=== PATIENT | female | born 1970 | race Caucasian/White ===

== ENCOUNTER 2022-03-03 14:57 | Outpatient (CLI) | payer BC, SELFPAY ==
--- NOTE | ~2022-03-03 | XR_ITS ---
XR lumbar spine 2-3V DATE: 03/03/2022 15:19 INDICATION: Mid to lower back pain. No recent injury. TECHNIQUE: AP, lateral, coned lateral lumbosacral views COMPARISON: None FINDINGS: Minimal levoscoliosis of the lumbar spine. Normal alignment of the lumbar spine. No fractur e or bone destruction or spondylolisthesis. The lumbar pedicles are intact. Lumbar and lumbosacral in terspaces are well preserved. There is mild degenerative spurring at T12-L1. The sacroiliac joints are intact. IMPRESSION: Minimal levoscoliosis Mild degenerative spurring at T12-L1 Reviewed, dictated and finalized at location A.
[2022-03-03 20:18] LABS: Basophils Percent Auto 0.7 % (0.2-1.2); Eosinophils Absolute Auto 0.1 K/mm3 (0-0.3); Eosinophils Percent Auto 1.7 % (0-4.4); Hemoglobin 13.9 g/dL (12.0-15.0); Immature Granulocyte Absolute 0.01 K/mm3 (0.00-0.031); Immature Granulocyte Percent A 0.2 % (0-0.5); Lymphocytes Absolute Auto 1.64 K/mm3 (0.9-3.2); Lymphocytes Percent Auto 30.7 % (18.3-44.2); Mean Corpuscular HGB Conc 32.3 g/dl (32-36); Mean Corpuscular Hemoglobin 31.1 pg (26-34); Mean Corpuscular Volume 96.2 fl (80-100); Mean Platelet Volume 10.7 fl (7.4-10.4); Monocytes Absolute Auto 0.3 K/mm3 (0.1-0.6); Monocytes Percent Auto 5.8 % (2.6-8.5); Neutrophils Absolute Auto 3.3 K/mm3 (1.3-6.7); Neutrophils Percent Auto 60.9 % (45.5-73.1); Platelet Count Result 251 k/mm3 (150-375); Red Blood Count 4.47 M/mm3 (4.2-5.4); Red Cell Distribution Width 12.3 % (11.5-14.5); White Blood Count 5.4 K/mm3 (4.5-10.0)
[2022-03-03 20:23] LABS: Alanine Aminotransferase 10 U/L (6-35); Albumin Level 4.6 g/dL (3.5-5.1); Alkaline Phosphatase 93 U/L (38-126); Anion Gap 6 mmol/L (8-16); Aspartate Amino Transferase 19 U/L (14-36); Bilirubin,Total 0.3 mg/dL (0.2-1.3); Blood Urea Nitrogen 13 mg/dL (7-17); Calcium 9.5 mg/dL (8.4-10.2); Carbon Dioxide 30 mmol/L (22-30); Chloride 99 mmol/L (98-107); Cholesterol 235 mg/dL (0-200); Estimated Glomerular Filt Rate > 60; Glucose 103 mg/dL (65-110); HDL Direct 58 mg/dL; Potassium 4.2 mmol/L (3.4-5.0); Sodium 135 mmol/L (137-145); Triglycerides 96 mg/dL (<150)
[2022-03-03 20:32] LABS: Hemoglobin A1C 5.3 % (<5.7)
[2022-03-03 20:35] LABS: LDL Cholesterol Direct 156 mg/dL
[2022-03-04 00:42] LABS: Folic Acid 14.7 ng/mL (2.76->20)
[2022-03-07 20:54] LABS: Varicella IgG Antibody <135.00 Index (>=165.00)
== END 2022-03-03 14:58 | disposition home or self-care (01) ==
PROVIDERS: PCP Family Medicine; Visit Provider Family Medicine
DX: Z00.00 Encounter for general adult medical examination without abnormal findings (principal); R20.0 Anesthesia of skin; Z78.9 Other specified health status
CPT/HCPCS: 36415; 72100; 80053; 80061; 82607; 82746; 83036; 85025; 86787

== ENCOUNTER 2024-01-09 16:19 | Emergency (ER) | payer BC, SELFPAY ==
[2024-01-09 16:27] VITALS: BP 126/75; PULSE 105; RESP 16; TEMP 36.9; O2SAT 100
--- NOTE | 2024-01-09 17:00 | ED.GENADULT ---
HPI - General Adult General Chief complaint: Upper Respiratory Infection Stated complaint: Cough/Shortness of Breath/Headache/Sore Throat Time Seen by Provider: 01/09/24 17:03 Source: patient, RN notes reviewed and old records reviewed Mode of arrival: ambulatory Limitations: no limitations History of Present Illness HPI narrative: 53-year-old female to Express Care with complaint productive cough with increased sputum for 1.5 weeks as well as nasal congestion and bilateral ear pain. Patient has attempted several [id number] medications without relief. Patient endorses history of asthma and COPD. Patient also endorsing 10 of 10 headache upon arrival. Patient denies nausea, vomiting, visual changes, fever. Related Data Allergies Allergy/AdvReac Type Severity Reaction Status Date / Time tramadol Allergy Intermediate redness Verified 12/31/22 07:43 and burning Review of Systems Review of Systems: All systems reviewed & are unremarkable except as noted in HPI and below Constitutional: Constitutional: Reports as per HPI and Reports headache(s) Eyes: Eyes: Reports no additional eye complaints ENT: Reports as per HPI, Reports otalgia ( Bilateral), Reports headache(s), Reports nasal congestion and Denies throat swelling Cardiovascular: Cardiovascular: Reports no additional cardiovascular complaints, Denies chest pain and Denies dyspnea Respiratory: Respiratory: Reports no additional respiratory complaints, Reports change in phlegm color, Reports cough ( productive; green sputum per patient) and Denies dyspnea Musculoskeletal: Musculoskeletal: Reports no additional musculoskeletal complaints Neurologic: Reports system reviewed and no additional complaints, except as documented Psychiatric: Psychiatric: Reports no additional psychiatric complaints PMFSH Past Medical History Medical History Allergies Anxiety Arthritis Asthma COPD (chronic obstructive pulmonary disease) H/O migraine Osteoarthritis Ulcer Surgical History Surgical History H/O tubal ligation Family History Family History Father Cancer Mother Hypertension Diabetes mellitus Depression Anxiety Alcohol abuse Dementia Other Asthma Anxiety Depression Mother Family history of arthritis Family history of diabetes mellitus in first degree relative Family history of dementia Social History Social History Smoking packs per day: 0.5 Smoking cigarettes per day: 10.0 Smoking status: Current every day smoker Tobacco type: cigarettes Alcohol intake: former Substance use: never Living arrangements: with family Gender identity (if verbalized by the patient): Female Comments At the time of my signature, I reviewed and agree with the nursing past medical, surgical, social, and family history. There is no relevant family history pertinent to the patient complaint. Exam Const: General: cooperative, no acute distress, alert, ill appearing, tired appearing, uncomfortable and well nourished Nutritional Appearance: well nourished Orientation/consciousness: patient oriented x3 Limitations: no limitations HENMT: Head: normal to inspection Ears: external ears normal and TM abnormal with fluid behind the TM Face/Nose/Sinus: Normal external nose present, Normal nares present, normal facial exam, No erythema and No edema Face and sinus: normal facial exam, no erythema and no edema Mouth: Yes Normal oral and palatal mucosa present Throat: uvula midline, posterior oropharynx abnormal erythema and postnasal drainage Eyes: General: appearance normal, both eyes and all related structures Neck: Neck: normal visual inspection, full ROM and no meningeal signs Lymphatic: no lymphadenopathy noted
== END 2024-01-09 17:24 | disposition home or self-care (01) ==
PROVIDERS: Emergency Provider Nurse Practitioner Family
DX: J01.10 Acute frontal sinusitis, unspecified (principal); F17.210 Nicotine dependence, cigarettes, uncomplicated; M19.90 Unspecified osteoarthritis, unspecified site; J44.9 Chronic obstructive pulmonary disease, unspecified
CPT/HCPCS: 99213; G0463

== ENCOUNTER 2024-02-17 15:25 | Emergency (ER) | payer BC, SELFPAY ==
[2024-02-17 15:30] VITALS: BP 105/82; PULSE 96; RESP 18; TEMP 36.8; O2SAT 98
--- NOTE | 2024-02-17 15:42 | ED.URI ---
HPI - URI/Sore Throat General Chief Complaint: Upper Respiratory Infection Stated Complaint: Head congestion/headache Time Seen by Provider: 02/17/24 15:49 Source: patient and RN notes reviewed Mode of arrival: ambulatory Limitations: no limitations History of Present Illness HPI Narrative: 53-year-old female presents with concern for 3 day history of cough, chest congestion, sinus congestion, headache, tightness in her chest, wheezing and shortness of breath. She has history of asthma. She has been taking [id number] medications without relief MD elicited complaint: cough and sore throat Related Data Allergies Allergy/AdvReac Type Severity Reaction Status Date / Time tramadol Allergy Intermediate redness Verified 12/31/22 07:43 and burning Review of Systems Review of Systems: CONSTITUTIONAL: Reports malaise. Denies chills, sweats, or fever. EYES: Denies visual changes, redness, or discharge. ENT: Reports rhinorrhea, congestion, sinus pain, and sore throat. CARDIOVASCULAR: Denies chest pain, palpitations, or edema. RESPIRATORY: Reports cough, wheezing, dyspnea. GASTROINTESTINAL: Denies abdominal pain, nausea, vomiting, diarrhea SKIN: Denies rash or itching. MUSCULOSKELETAL: Report myalgia. NEUROLOGIC: Reports headache. All systems reviewed & are unremarkable except as noted in HPI and below PMFSH Past Medical History Medical History Allergies Anxiety Arthritis Asthma COPD (chronic obstructive pulmonary disease) H/O migraine Osteoarthritis Ulcer Surgical History Surgical History H/O tubal ligation Family History Family History Father Cancer Mother Hypertension Diabetes mellitus Depression Anxiety Alcohol abuse Dementia Other Asthma Anxiety Depression Mother Family history of arthritis Family history of diabetes mellitus in first degree relative Family history of dementia Social History Social History Smoking packs per day: 0.5 Smoking cigarettes per day: 10.0 Smoking status: Current every day smoker Tobacco type: cigarettes Alcohol intake: former Substance use: never Living arrangements: with family Gender identity (if verbalized by the patient): Female Comments At time of signature, agree with nursing past medical, surgical, social and family history. There is no relevant family history pertinent to the presenting complaint Exam Narrative: GENERAL: Well-appearing, well-nourished, and in no acute distress. HEAD: Normocephalic EYES: PERRLA, conjunctivae clear ENT: Nares clear, turbinates edematous and erythematous, clear discharge. Mucous membranes moist. TM pearly salguero with dull light reflex bilaterally; no tragal tenderness. Oropharynx not erythematous without lesions. Tonsils not enlarged and without exudate, no drooling, no hoarseness, no trismus, uvula midline. NECK: Supple. No lymphadenopathy CHEST: Scattered wheeze and rhonchi, breath sounds equal. No wheezing, rhonchi, rales, or stridor. No respiratory distress, speaks in full sentences. HEART: Regular rate and rhythm. No murmur heard. SKIN: Warm, dry, no rash. NEURO: Alert and oriented x3. PSYCH: Normal mood and affect Course Course Emergency Course: Patient is aware of diagnosis, understands and agrees to treatment plan. Anticipatory guidance given. Patient agrees to follow-up as directed and is aware of reasons to seek care at the emergency department. Portions of this record may have been created with voice recognition software Level of Care: Express Care Visit Vital Signs Vital signs: Vital Signs Temperature 98.2 F 02/17/24 15:30 Pulse Rate 96 02/17/24 15:30 Respiratory Rate 18 02/17/24 15:30 Blood Pressure 105/82
== END 2024-02-17 16:05 | disposition home or self-care (01) ==
PROVIDERS: Emergency Provider Nurse Practitioner
DX: J22 Unspecified acute lower respiratory infection (principal); F17.210 Nicotine dependence, cigarettes, uncomplicated; M19.90 Unspecified osteoarthritis, unspecified site; J44.9 Chronic obstructive pulmonary disease, unspecified
CPT/HCPCS: 99213; G0463

== ENCOUNTER 2024-11-22 15:55 | Emergency (ER) | payer BC, SELFPAY ==
[2024-11-22 16:03] VITALS: BP 106/91; PULSE 115; RESP 18; TEMP 37.3; O2SAT 97
--- NOTE | 2024-11-22 17:19 | ED.GENADULT ---
HPI - General Adult General Chief complaint: Upper Respiratory Infection Stated complaint: Runny Nose/Congestion/Cough/Sore Throat Source: patient Mode of arrival: ambulatory Limitations: no limitations History of Present Illness HPI narrative: Patient presents for evaluation of sick symptoms for last 3 weeks. She initially sinus congestion thick nasal drainage. She now has hot flashes, a burning sensation in her throat, chills, cough, and SOB. No recent sick contacts to her knowledge. She smokes 1/2 ppd. She has tried multiple medications including DayQuil, NyQuil, Mucinex, and other medications. She has been using her inhalers and administering neb treatments at home. Related Data Home Medications ?Medication ?Instructions ?Recorded ?Confirmed ?Last Taken ?Type atorvastatin 40 mg tablet mg 11/22/24 Unknown History Allergies Allergy/AdvReac Type Severity Reaction Status Date / Time tramadol Allergy Intermediate redness Verified 12/31/22 07:43 and burning Review of Systems Review of Systems: CONSTITUTIONAL: Reports hot flashes and chills. EYES: Denies visual changes, redness, or discharge. ENT: Reports nasal congestion and burning sensation in her throat. CARDIOVASCULAR: Denies chest pain, palpitations, or edema. RESPIRATORY:Reports cough and SOB GASTROINTESTINAL: Denies abdominal pain, nausea, vomiting, or diarrhea. GENITOURINARY: Denies dysuria or hematuria. SKIN: Denies rash or itching. MUSCULOSKELETAL: Denies back pain, joint pain, or myalgia. NEUROLOGIC: Denies headache, numbness, dizziness, or weakness. PSYCHIATRIC: Denies anxiety or depression. [facility] Past Medical History Medical History Allergies Anxiety Arthritis Asthma COPD (chronic obstructive pulmonary disease) H/O migraine Osteoarthritis Ulcer Surgical History Surgical History H/O tubal ligation Family History Family History Father Cancer Mother Hypertension Diabetes mellitus Depression Anxiety Alcohol abuse Dementia Other Asthma Anxiety Depression Mother Family history of arthritis Family history of diabetes mellitus in first degree relative Family history of dementia Social History Social History Smoking packs per day: 0.5 Smoking cigarettes per day: 10.0 Smoking status: Current every day smoker Tobacco type: cigarettes Alcohol intake: former Substance use: never Living arrangements: with family Gender identity (if verbalized by the patient): Female Exam Narrative: GENERAL: Well-appearing, well-nourished, and in no acute distress. HEAD: Normocephalic, atraumatic. EYES: PERRLA and EOMI. ENT: Nares clear, no rhinorrhea or epistaxis. Mucous membranes moist. Oropharynx without tonsillar hypertrophy exudate or other lesions. Bilateral TMs pearly salguero nonbulging NECK: Supple. No adenopathy or masses. No carotid bruits or JVD CHEST: Cough present on exam. Mild wheezing noted in BUL posteriorly. No respiratory distress. HEART: Regular rate and rhythm. No murmur heard. Normal peripheral pulses. ABDOMEN: Soft, nontender, nondistended, normal active bowel sounds. EXTREMITIES: Normal range of motion. No edema. SKIN: Warm, dry, no rash. NEURO: No focal deficits. Alert and oriented x3. PSYCH: Normal mood and affect. Course Course Emergency Course: This is a 54-year-old female who presented for evaluation of respiratory symptoms. I recommended chest x-ray. She declined. She would like to be discharged home. We did agree to empiric treatment for pneumonia given her underlying risk factors. Will dc with prednisone, azithromycin and augmentin. Increase hydration. Follow up with primary provider. Go to the ER for worsening symptoms. Patient in agreement with plan care Level of Care: Express Care Visit Vital Signs Vital signs: Vital Signs Temperature 37.3 C 11/22/24 16:03 Pulse Rate 115 H 11/22/24 16:03 Respiratory Rate 18 11/22/24 16:03 Blood Pressure 106/91 H 11/22/24 16:03 Pulse Oximetry 97 11/22/24 16:03 Oxygen Delivery Room Air 11/22/24 16:03 Temperature 37.3 C 11/22/24 16:03 Pulse Rate 115 H 11/22/24 16:03 Respiratory Rate 18 11/22/24 16:03 Blood Pressure 106/91 H 11/22/24 16:03 Pulse Oximetry 97 11/22/24 16:03 Oxygen Delivery Room Air 11/22/24 16:03 Medical Decision Making Vital Signs Vital Signs: Vital Signs Temperature 37.3 C 11/22/24 16:03 Pulse Rate 115 H 11/22/24 16:03 Respiratory Rate 18 11/22/24 16:03 Blood Pressure 106/91 H 11/22/24 16:03 Pulse Oximetry 97 11/22/24 16:03 Oxygen Delivery Room Air 11/22/24 16:03 Temperature 37.3 C 11/22/24 16:03 Pulse Rate 115 H 11/22/24 16:03 Respiratory Rate 18 11/22/24 16:03 Blood Pressure 106/91 H 11/22/24 16:03 Pulse Oximetry 97 11/22/24 16:03 Oxygen Delivery Room Air 11/22/24 16:03 Discharge Plan Discharge Clinical Impression: COPD (chronic obstructive pulmonary disease), At risk for pneumonia Patient Disposition: Home, Self-Care Condition: Stable Instructions: Antibiotic Form, How to Stop Smoking (ED), COPD (Chronic Obstructive Pulmonary Disease) (DC) Patient Language: Japanese Prescriptions: New prednisone 50 mg tablet 50 mg PO DAILY Qty: 5 0RF amoxicillin-pot clavulanate 875-125 mg tablet 1 tablet PO Q12H Qty: 20 0RF azithromycin 250 mg tablet See Rx Instructions .ROUTE .COMPLEX Qty: 6 0RF Rx Instructions: For 250 mg dose pack: take 500 mg today (day 1), then 250 mg for 4 days (days 2-5) No Action atorvastatin 40 mg tablet albuterol sulfate 90 mcg/actuation HFA aerosol inhaler 2 puff INHALATION QID PRN (Reason: shortness of breath or wheezing) Qty: 8.5 0RF terbinafine HCl 250 mg tablet 250 mg PO DAILY Qty: 84 0RF albuterol sulfate 90 mcg/actuation aerosol powdr breath activated 1 inh inhalation BID PRN (Reason: shortness of breath or wheezing) Qty: 1 3RF albuterol sulfate [Proventil HFA] 90 mcg/actuation HFA aerosol inhaler 1 inh inhalation Q4H PRN (Reason: shortness of breath or wheezing) Qty: 8.5 3RF citalopram 20 mg tablet 20 mg PO DAILY Qty: 90 0RF Follow-up/Referrals: Isabelle,SHONDA Huerta [Primary Care Provider] - Time of Disposition: 17:18
--- OUTSIDE RECORDS SUMMARY | 2024-11-22 18:23 | XMS_ITS | Encounter Summary ---
Author Organization [facility] Address [address] [place] [address] Phone Care Team Providers Care Letterpress Printing Machinist Name Role Phone IsabelleReema wilkesceci Castanonelle PAC Primary Care Pro vider Pradip Almonte PAC Unavailable [phone] Leyla Cabrera APRN, HOME THEATRE TECHNICIAN Unavailable Reason for Visit * Auth/Cert (Routine) Specialty Diagnoses / Procedures Referred By Contac t Referred To Contact Diagnoses SCREENING Procedures COLONOSCOPY [place] MD [address] [address] Phone: tel: fax: Referral ID Status Reason Start Date Expiration Date Visits Re quested Visits Authorized [id number] 1 1 Encounter Details Date Type Department Care Team (Late st Contact Info) Description 10/25/2024 Hospital Encounter [facility] Periop [address] [place] [id number] [place] MD [address] [address] Social History Tobacco Use Types Packs/Day Years Used Date Smoking Tobacco: Every Day Cigarettes Smokeless Tobacco: Never Comments:Down to 1/2 pack tr melodie to quit Alcohol Use Standard Drinks/Week Comments Not Currently 0 (1 standard drink = 0.6 oz pur e alcohol) sober since 2019 [facility] Utilities Answer Date Recorded In the past 12 months has th e electric, gas, oil, or water company threatened to shut off services in your home? No 06/13/2024 Social Connection and Isolat ion Panel [NHANES] Answer Date Recorded In a typical week, how many times do you talk on the phone with family, friends, or neighbors? More than three times a week 06/13/2024 How often do you get togethe r with friends or relatives? Twice a week 06/13/2024 How often do you attend chur ch or judaism services? Never 06/13/2024 Do you belong to any clubs o r organizations such as voodoo groups, unions, fraternal or athletic groups, or school groups? No 06/13/2024 How often do you attend meet ings of the clubs or organizations you belong to? Never 06/13/2024 Are you , , di vorced, , never , or living with a partner? Never 06/13/2024 AUDIT-C Answer Date Recorded Q1: How often do you have a drink containing alcohol? Never 06/13/2024 Q2: How many drinks containi ng alcohol do you have on a typical day when you are drinking? Patient does not drink Q3: How often do you have si x or more drinks on one occasion? Never 06/13/2024 Overall Financial Resource Strain (CARDIA) Answe r Date Recorded How hard is it for you to pa y for the very basics like food, housing, medical care, and heating? Not hard at all 06/13/2024 PHQ-2 Answer Date Recorded Total Score - Questions 1-9 2 05/29 [facility] [place] [facility] - Occupational Stress Questionnaire Answer Date Recorded Do you feel stress - tense, restless, nervous, or anxious, or unable to sleep at night because your mind is troubled all the time - these days? To some extent 06/13/2024 Exercise Vital Sign Answer Date Recorde d On average, how many days pe r week do you engage in moderate to strenuous exercise (like a brisk walk)? 4 days 06/13/2024 On average, how many minutes do you engage in exercise at this level? 30 min 06/13/2024 Hunger Vital Sign Answer Date Recorded Within the past 12 months, y ou worried that your food would run out before you got the money to buy more. Never true 06/13/20 Within the past 12 months, t he food you bought just didn't last and you didn't have money to get more. Never true 06/13/2024 PRAPARE - Transportation Answer Date Re corded In the past 12 months, has l ack of transportation kept you from medical appointments or from getting medications? No 05/29 In the past 12 months, has l ack of transportation kept you from meetings, work, or from getting things needed for daily living? No 06/13/2024 Housing Stability Vital Sign Answer Charly e Recorded In the last 12 months, was t here a time when you were not able to pay the mortgage or rent on time? No 06/13/2024 In the past 12 months, how m any times have you moved where you were living? 0 06/13/2024 At any time in the past 12 m [facility], were you homeless or living in a detention (including now)? No 06/13/2024 Sexually Active Control Partners Comments Not Currently Male boyfriend of 1 4 years just passed Comments No Sex and Gender Information Value Date Recorded Sex Assigned at Not on file Legal Sex Female 9:15 PM CDT Gender Identity Not on file Sexual Orientation Not on file Occupation Industry Job Start Date Job End Date Disable Not on file Not on file Not on file documented as of this encounter Plan of Treatment Upcoming Encounters Date Type Department Care Team (Late st Contact Info) Description 12/26/2024 9:30 AM CDT Office Visit [facility] - Pulmonology & [facility] Medicine [facility] [address] [place] [address] Leyla Cabrera APRN, HOME THEATRE TECHNICIAN [address] [address] documented as of this encounter Visit Diagnoses Not on filedocumented in this encounter Additional Health Concerns Assessment Noted Time PHQ-9 Depression Total Score: 2 06/13/20 24 1:45 PM CDT documented as of this encounter Care Teams Letterpress Printing Machinist Relationship Specialty Start Date End Date Deanna Walton, PAC [address] [place] [address] PCP - General Physician Information Systems Manager 06/13/24 Pradip Almonte, PAC [address] [place] [address] Physician Information Systems Manager Physician Information Systems Manager 06/29/24 Leyla Cabrera APRN, HOME THEATRE TECHNICIAN [address] [address] Nurse Practitioner Advanced Practice Nurse 07/29/24 documented as of this encounter
--- OUTSIDE RECORDS SUMMARY | 2024-11-22 18:23 | XMS_ITS | Clinical Summary ---
Author Organization [facility] Address [address] [place] [address] Phone Care Team Providers Care Final Cigar And Box Examiner Name Role Phone Deanna Walton PAC Primary Care Pro vider Pradip Almonte PAC Unavailable [phone] Leyla Cabrera APRN, MIGRATORY WORKER Unavailable [phone] Allergies Active Allergy Reactions Criticality Noted Date Comments Tramadol Hives,Shortness of Breath,Itching,Swelling High 01/13/2018 Medications atorvastatin (LIPITOR) 40 MG TabletIndications: Hyperlipidemia, unspecified hyperlipidemia type Take 1 Tablet by mouth daily. 90 Tablet 1 06/22/20 24 Active tiotropium (SPIRIVA RESPIMAT) 2.5 MCG/ACT Aerosol SolutionIndication s:Chronic obstructive pulmonary disease, unspecified COPD type (HCC) take 2 Puffs by inhalation daily. 4 g 5 07/18/20 24 Active Proventil HFA 108 (90 Base) MCG/ACT Aerosol SolutionIndication s:Chronic obstructive pulmonary disease, unspecified COPD type (HCC) take 2 Puffs by inhalation every 4 hours as needed for Cough or Wheezing. 18 g 3 07/19/20 24 Active HYDROcodone-acetam inophen (NORCO) 5-325 MG TabletIndications: Carpal tunnel syndrome of right wrist Take 1 Tablet by mouth every 4 hours as needed for Severe pain. 12 Tablet 07/28/20 24 Active Additional Information Patient not taking.Reported on 09/07/2024 Active Problems Problem Noted Date Diagnosed Date Alcohol abuse 06/13/2024 Smoker 06/13/2024 Chronic obstructive pulmonary disease 06/13/2024 Right wrist pain 05/25/2018 Physical exam, annual (Adult) 04/27/2018 Screening for breast cancer 04/27/2018 Personal history of tobacco use 04/27/2018 Panlobular emphysema 04/27/2018 Chronic midline low back pain with bilateral sci atica 04/27/2018 Seizure disorder 04/27/2018 Overview (06/13/2024): Alcohol related Have stopped drinking 5 years ago No seizures since Encounters Date Type Department Care Team Description 10/25/2024 Hospital Encounter [facility] Gi Lab Periop [address] [place] [address] [place] MD 10/16/2024 Travel 09/07/2024 Nurse Triage [facility] - Pulmonology & Sleep Medicine [facility] [address] [place] [address] Leyla Cabrera, SOLAR THERMAL TECHNICIAN, MIGRATORY WORKER Cough 09/07/2024 Telephone [facility] - Internal Medicine - [place] [address] [place] [address] Deanna Walton, JESSY from Last 3 Months Immunizations Immunization Administration Dates Next Due Pneumococcal Vaccine Adult - 23 Valent 8 Family History Medical History Relation Name Comments No Known Problems Brother 1 Diabetes Brother 2 Other-comment Brother 3 Cardiomedly/ e nlarged heart Cancer Father No Known Problems Maternal Grandfather Other-comment Maternal Grandmother Blood clots Dementia Mother Diabetes Mother Hypertension Mother Seizures Mother No Known Problems Paternal Grandfather No Known Problems Paternal Grandmother No Known Problems Sister 1 car accide nt No Known Problems Sister 2 Relation Name Status Comments Brother 1 Alive Brother 2 Alive Brother 3 Father Maternal Grandfather Maternal Grandmother Mother Paternal Grandfather Paternal Grandmother Sister 1 Sister 2 Alive Social History Tobacco Use Types Packs/Day Years Used Date Smoking Tobacco: Every Day Cigarettes Smokeless Tobacco: Never Tobacco Cessation:Ready to Q uit: Not Asked; Counseling Given: Not Answered Comments:Down to 1/2 pack trying to quit Alcohol Use Standard Drinks/Week Comments Not Currently 0 (1 standard drink = 0.6 oz pur e alcohol) sober since 2018 [facility] Utilities Answer Date Recorded In the [...] often do you attend chur ch or congregation services? Never 06/13/2024 Do you belong to any clubs o r organizations such as spiritism groups, unions, fraternal or athletic groups, or [...] Total Score - Questions 1-9 2 05/29 [facility] Occupat ional [facility] - Occupational Stress [...] money to buy more. Never true 06/13/20 24 Within the past 12 months, t he [...] any time in the past 12 m [facility], were you homeless or living in a half-way (including now)? No 06/13/2024 Sexually Active Control [...] file Not on file Not on file Last Filed Vital Signs Vital Sign Reading Time Taken Comments Blood Pressure 130/78 08/11/2024 10:43 AM MILK AND CREAM GRADER Pulse 109 08/11/2024 10:43 AM MILK AND CREAM GRADER Temperature 36.3 C (97.4 F) 08/11/2024 10:43 AM MILK AND CREAM GRADER Respiratory Rate 16 08/11/2024 10:43 AM MILK AND CREAM GRADER Oxygen Saturation 98% 08/11/2024 10:43 AM MILK AND CREAM GRADER Inhaled Oxygen Concentration - - Weight 76.7 kg (169 lb) 08/11/2024 10:43 AM MILK AND CREAM GRADER Height 170.2 cm (5' 7 ) 08/11/2024 10:43 AM MILK AND CREAM GRADER Body Mass Index 26.47 08/11/2024 10:43 AM MILK AND CREAM GRADER Plan of Treatment Upcoming Encounters Date Type Department Care Team (Late st Contact Info) Description 12/26/2024 9:30 AM CDT Office Visit [facility] - Pulmonology & [facility] [address] [place] [address] Leyla Cabrera, SOLAR THERMAL TECHNICIAN, MIGRATORY WORKER [address] [address] [address] Health Maintenance Due Date Last Done Comments Hepatitis C Virus (HCV) Screening 1971 Mammogram 1971 TdaP Immunization 1971 Hepatitis B Immunization (1 of 3 - 19+ 3-dose series) 1990 Pap Smear 1992 Cervical Cancer Screening (CCS) 2001 HPV/Cotest 2001 Colonoscopy 2016 Colorectal Cancer Screening 2016 Pneumococcal Immunization (5 0+ years) (2 of 2 - PCV) 04/27/2019 04/27/2018 Cologuard 2021 Immunochemical Fecal Occult Blood 2021 Zoster Immunization (1 of 2) 2021 Influenza Immunization (#1) 2024 07/26/2015 SARS-COV-2 Immunization ( - season) 2024 Respiratory Syncytial Virus (RSV) Immunization (Adult) (1 - 1-dose 75+ series) 2046 Pneumococcal Immunization Combined Discontinued 2017 Meningococcal Immunization (ACWY) Aged Out No longer eligible based on patient's age to complete this topic Rotavirus Immunization Aged Out No lo nger eligible based on patient's age to complete this topic Insurance [place] [id number] Care Teams Final Cigar And Box Examiner Relationship Specialty Start Date End Date Deanna Walton, [facility] [address] [place] [address] PCP - General Physician Application Support Manager 06/13/24 Pradip Almonte, PAC [address] [place] [address] Physician Application Support Manager Physician Application Support Manager 06/29/24 Leyla Cabrera APRN, MIGRATORY WORKER #[address] [address] Nurse Practitioner Advanced Practice Nurse 07/29/24
--- OUTSIDE RECORDS SUMMARY | 2024-11-22 18:23 | XMS_ITS | Encounter Summary ---
Author Organization [facility] Address [address] [place] [address] Phone Care Team Providers Care Shotweld Operator Name Role Phone IsabelleReema wilkesney Laura PAC Primary Care Pro vider Pradip Almonte PAC Unavailable [phone] Leyla Cabrera APRN, ORGANIC CHEMISTRY TEACHER Unavailable Encounter Details Date Type Department Care Team (Latest Contact Info) Description 07/13/2024 [facility] [address] [place] [address] Stefan Mead, DO [address] [facility]. [address] [place] [address] Right carpal tunnel syndrome (Primary Dx); Pre-op testing Social History Tobacco Use Types Packs/Day Years Used Date Smoking Tobacco: Every Day Cigarettes Smokeless Tobacco: Never Comments:Down to 1/2 pack tr melodie to quit Alcohol Use Standard Drinks/Week Comments Not Currently 0 (1 standard drink = 0.6 oz pur e alcohol) sober since 2019 [facility] Utilities Answer Date Recorded In the past 12 months has e electric, gas, oil, or water company [...] often do you attend chur ch or quaker services? Never 06/13/2024 Do you belong to any clubs o r organizations such as zoroastrian groups, unions, fraternal or athletic groups, or [...] Total Score - Questions 1-9 2 05/29 [facility] - Occupational Stress Questionnaire Answer Date Recorded [...] any time in the past 12 m [facility], were you homeless or living in a assisted (including now)? No 06/13/2024 Sexually Active Control [...] Medical Group - Pulmonology & Sleep Medicine - [place] [address] [place] [address] Leyla Cabrera APRN, ORGANIC CHEMISTRY TEACHER [address] [address] documented as of this encounter Visit Diagnoses Diagnosis Right carpal tunnel syndrome- Primary Carpal tunnel syndrome Pre-op testing Preoperative examination, unspecified documented in this encounter Additional Health Concerns Assessment Noted Time PHQ-9 Depression Total Score: 2 06/13/20 24 1:45 PM CDT documented as of this encounter Care Teams Shotweld Operator Relationship Specialty Start Date End Date Deanna Walton PAC [address] [place] [address] PCP - General Physician Clinical Specialist 06/13/24 Pradip Almonte PAC [address] [place] [address] Physician Clinical Specialist Physician Clinical Specialist 06/29/24 Leyla Cabrera APRN, ORGANIC CHEMISTRY TEACHER [facility] [address] [address] Nurse Practitioner Advanced Practice Nurse 07/29/24 documented as of this encounter
== END 2024-11-22 17:23 | disposition home or self-care (01) ==
PROVIDERS: Emergency Provider Nurse Practitioner; PCP Physician Assistant
DX: J44.9 Chronic obstructive pulmonary disease, unspecified (principal); F17.210 Nicotine dependence, cigarettes, uncomplicated; M19.90 Unspecified osteoarthritis, unspecified site; F41.9 Anxiety disorder, unspecified
CPT/HCPCS: 99213; G0463

== ENCOUNTER 2025-04-29 15:38 | Emergency (ER) | payer BC, SELFPAY ==
--- NOTE | ~2025-04-29 | XR_ITS ---
EXAMINATION: XR chest 2V Exam Date/Time: 04/29/2025 16:06 CDT HISTORY: cough, COPD, PLEURITIC CP Comparison: 01/16/2018. RESULT: Lines, tubes, and devices: None. Lungs and pleura: Clear. Cardiomediastinal silhouette: Stable. Small hiatal hernia. Other: No acute osseous or upper abdominal finding. IMPRESSION: No acute cardiopulmonary process. Reviewed, dictated and finalized at location K.
--- OUTSIDE RECORDS SUMMARY | 2025-04-29 15:40 | XMS_ITS | Clinical Summary ---
Author Organization [facility] Address [address] [place] [address] Phone Care Team Providers Care Analysis Reporting Developer Name Role Phone Deanna Walton PAC Primary Care Pro vider Pradip Almonte PAC Unavailable [phone] Leyla Cabrera APRN, RAYON TESTER Unavailable [phone] Allergies Active Allergy Reactions Criticality Noted Date Comments Tramadol Hives,Shortness of Breath,Itching,Swelling High 01/13/2018 Medications albuterol (PROVENTIL, VENTOLIN) (2.5 MG/3ML) 0.083% Nebulizer Soln 2.5 mg by Nebulization route every 4 hours as needed for Cough. Active Proventil HFA 108 (90 Base) MCG/ACT Aerosol SolutionIndicatio ns:Chronic obstructive pulmonary disease, unspecified COPD type (HCC) take 2 Puffs by inhalation every 4 hours as needed for Cough or Wheezing. 18 g 3 025 Active fluconazole (DIFLUCAN) 100 MG Tablet Take 200mg day 1 then take 100mg days 2-14. 15 Tablet 025 Active budesonide-formot martin fumarate (Symbicort) 160-4.5 MCG/ACT Aerosol take 2 Puffs by inhalation 2 times daily. 10.2 g 1 025 Active tiotropium (SPIRIVA RESPIMAT) 2.5 MCG/ACT Aerosol Solution take 2 Puffs by inhalation daily. 4 g 1 025 Active atorvastatin (LIPITOR) 40 MG TabletIndications :Hyperlipidemia, unspecified hyperlipidemia type TAKE 1 TABLET BY MOUTH DAILY 90 Tablet 1 025 Active predniSONE (DELTASONE) 10 MG Tablet Take 1 Tablet by mouth daily for 10 days. Use as directed. 10 Tablet 025 2024 Active atorvastatin (LIPITOR) 40 MG TabletIndications :Hyperlipidemia, unspecified hyperlipidemia type TAKE 1 TABLET BY MOUTH DAILY 90 Tablet 1 025 2024 Discontinued Fluticasone-Umecl idin-Vilant 100-62.5-25 MCG/ACT AEROSOL POWDER, BREATH ACTIVATED take 1 Puff by inhalation daily. 1 Each 5 025 2024 Discontinued(A lternate therapy) Active Problems Problem Noted Date Diagnosed Date Alcohol abuse 06/13/2024 Smoker 06/13/2024 COPD with acute exacerbation 06/13/2024 Right wrist pain 05/25/2018 Physical exam, annual (Adult) 04/27/2018 Screening for breast cancer 04/27/2018 Personal history of tobacco use 04/27/2018 Panlobular emphysema 04/27/2018 Chronic midline low back pain with bilateral sci atica 04/27/2018 Seizure disorder 04/27/2018 Overview (06/13/2024): Alcohol related Have stopped drinking 5 years ago No seizures since Encounters Date Type Department Care Team Description 04/25/[address] [facility] - Pulmonology & Sleep Medicine [facility] [address] [place] [address] Leyla Cabrera RN 04/22/2025 Refill [facility] - [place] [address] [place] [address] Deanna Walton, JESSY Medication Refill 04/13/[address] [facility] - Pulmonology & Sleep Medicine [facility] [address] [place] [address] Leyla Cabrera APRN, CRISTOBAL 04/06/2025 [facility] - [place] [address] [place] [address] Leyla Cabrera APRN, CNP Prior Authorization (Trelegy) 02/21/2025 Telephone [facility] Pul[facility]ology & [facility] Medicine - [place] [address] [place] [address] Leyla Cabrera APRN, CNP from Last 3 Months Immunizations Immunization Administration [...] Tobacco: Never Tobacco Cessation:Ready to Q uit: Yes; Counseling Given: Yes Comments:Down to 1/2 pack trying to quit Alcohol Use Standard Drinks/Week Comments Not Currently 0 (1 standard drink = 0.6 oz pur e alcohol) sober since 2019 [facility] Utilities Answer Date Recorded In the past 12 months has [employer], [employer], oil, or water [employer] threatened to shut off services in your home? No 06/13/2024 Social Connection and Isolation Panel Answer Date Recorded In a typical week, how many times do you talk on the phone with family, friends, or neighbors? More than three times a week 06/13/2024 How often do you get togethe r with friends or relatives? Twice a week 06/13/2024 How often do you attend chur or mosque services? Never 06/13/2024 Do you belong to any clubs o r organizations such as pentecostalism groups, unions, fraternal or athletic groups, or [...] Total Score - Questions 1-9 2 05/29 [facility] Occupat ional [facility] - Occupational Stress Questionnaire Answer Date [...] any time in the past 12 m [facility], were you homeless or living in a [...] Sign Reading Time Taken Comments Blood Pressure 118/82 12/26/2024 9:23 AM CDT Pulse 105 12/26/2024 9:23 AM CDT Temperature 37.1 C (98.7 F) 12/26/2024 9:23 AM CDT Respiratory Rate 20 12/26/2024 9:23 AM CDT Oxygen Saturation 96% 12/26/2024 9:23 AM CDT Inhaled Oxygen Concentration - - Weight 76.2 kg (168 lb) 12/26/2024 9:23 AM CDT Height 170.2 cm (5' 7) 12/26/2024 9:23 AM CDT Body Mass Index 26.31 12/26/2024 9:23 AM CDT Plan of Treatment Upcoming Encounters Date Type Department Care Team (Late st Contact Info) Description 06/27/2025 10:30 AM CDT Office Visit [facility] - Pulmonology & [facility] Medicine [facility] [address] [place] [address] Leyla Cabrera APRN, RAYON TESTER [address] [facility] [address] [place] [address] Health Maintenance Due Date Last Done Comments Hepatitis C Virus (HCV) Screening 1971 Mammogram 1971 TdaP Immunization 1971 Hepatitis B Immunization (1 of 3 - 19+ 3-dose series) 1990 Pap Smear 1992 Cervical Cancer Screening (CCS) 2001 HPV/Cotest 2001 Cologuard 2016 Colonoscopy 2016 Colorectal Cancer Screening 2016 Immunochemical Fecal Occult Blood 2016 Pneumococcal Immunization (5 0+ years) (2 of 2 - PCV) 04/27/2019 04/27/2018 Zoster Immunization (1 of 2) 2021 SARS-COV-2 Immunization (1 - 2023- season) 2024 Influenza Immunization (#1) 05/29/202506/29, 08/01/2013 Respiratory Syncytial Virus (RSV) Immunization (Adult) (1 - 1-dose 75+ series) 2046 Pneumococcal Immunization Combined Discontinued 04/27/2018 Human Papillomavirus (HPV) Immunization Aged Out No longer eligible based on patient's age to complete this topic Meningococcal Immunization (ACWY) Aged Out No longer eligible based on patient's age to complete this topic Rotavirus Immunization Aged Out No lo nger eligible based on patient's age to complete this topic Insurance MEDICAID [place] Care Teams Analysis Reporting Developer Relationship Specialty Start Date End Date Deanna Walton PAC [address] [place] [address] PCP - General Physician Graphite Pan Drier Tender 06/13/24 Pradip Almonte PAC [address] [place] [address] Physician Graphite Pan Drier Tender Physician Graphite Pan Drier Tender 06/29/24 Leyla Cabrera, PATRICE, RAYON TESTER #[address] [address] Nurse Practitioner Advanced Practice Nurse 07/29/24
--- OUTSIDE RECORDS SUMMARY | 2025-04-29 15:40 | XMS_ITS | Encounter Summary ---
Author Organization [facility] Address [address] [place] [address] Phone Care Team Providers Care Reed Polisher Name Role Phone IsabelleReema wilkesceci Castanonelle PAC Primary Care Pro vider Pradip Almonte PAC Unavailable [phone] Leyla Cabrera APRN, SEED COLLECTOR Unavailable Encounter Details Date Type Department Care Team (Latest Contact Info) Description 07/13/2024 [facility] [address] [place] [address] Stefan Mead, DO 2 [facility]. [address] [place] [address] Right carpal tunnel syndrome (Primary Dx); Pre-op testing Social History Tobacco Use Types Packs/Day Years Used Date Smoking Tobacco: Every Day Cigarettes Smokeless Tobacco: Never Comments:Down to 1/2 pack tr melodie to quit Alcohol Use Standard Drinks/Week Comments Not Currently 0 (1 standard drink = 0.6 oz pur e alcohol) sober since 2019 [facility] Utilities Answer Date Recorded In the past [...] often do you attend chur ch or anabaptist services? Never 06/13/2024 Do you belong to any clubs o r organizations such as anabaptism groups, unions, fraternal or athletic groups, or [...] Total Score - Questions 1-9 2 05/29 [facility] of Occupat ional Health - Occupational Stress [...] any time in the past [address] [facility], were you homeless or living in a snf (including now)? No 06/13/2024 Sexually Active Control [...] Medical Group - Pulmonology & Sleep Medicine [facility] [address] [place] [address] Leyla Cabrera APRN, SEED COLLECTOR #[address] [address] documented as of this encounter Visit Diagnoses Diagnosis Right carpal tunnel syndrome- Primary Carpal tunnel syndrome Pre-op testing Preoperative examination, unspecified documented in this encounter Additional Health Concerns Assessment Noted Time PHQ-9 Depression Total Score: 2 06/13/20 24 1:45 PM CDT documented as of this encounter Care Teams Reed Polisher Relationship Specialty Start Date End Date Deanna Walton PAC [address] [place] [id number] PCP - General Physician Procedures Tech 06/13/24 Pradip Almonte, PAC [address] [place] [address] Physician Procedures Tech Physician Procedures Tech 06/29/24 Leyla Cabrera APRN, SEED COLLECTOR #[address] [address] Nurse Practitioner Advanced Practice Nurse 07/29/24 documented as of this encounter
[2025-04-29 15:45] VITALS: BP 118/82; PULSE 91; RESP 16; TEMP 36.4; O2SAT 99
--- NOTE | 2025-04-29 16:30 | ED_ITS ---
HPI - General Adult General Chief complaint: Dental/Oral Stated complaint: Mouth Sore Source: patient Mode of arrival: ambulatory Limitations: no limitations History of Present Illness HPI narrative: Patient presents for evaluation of which she states is thrush. She notes a white plaque in her mouth that she states is painful. She has underlying COPD and asthma. She was recently started on symbicort and also uses spiriva, albuterol and was also placed on oral prednisone. She states she recently had thrush and states she was treated with antibiotics. Upon further questioning, she states she is not familiar with nystatin. She indicates over the last few weeks she has had some left-sided pleuritic chest pain, cough, worsening shortness of breath. Her auto mechanic apprentice recommended she come in for chest x-ray. That was not the purpose of her visit today. Rather, she came in for treatment of thrush. Related Data Home Medications ?Medication ?Instructions ?Recorded ?Confirmed ?Last Taken ?Type atorvastatin 40 mg tablet mg 11/22/24 Unknown History budesonide-formoterol HFA 160 inhalation 04/29/25 Unknown History mcg-4.5 mcg/actuation aerosol inhaler (Symbicort) ipratropium 0.5 mg-albuterol 3 mg ml inhalation 04/29/25 Unknown History (2.5 mg base)/3 mL nebulization soln methylprednisolone 4 mg tablets in mg 04/29/25 Unknown History a dose pack mometasone-formoterol HFA 200 inhalation 04/29/25 Unknown History mcg-5 mcg/actuation aerosol inhaler (Dulera) tiotropium bromide 2.5 inhalation 04/29/25 Unknown History mcg/actuation mist for inhalation (Spiriva Respimat) Allergies Allergy/AdvReac Type Severity Reaction Status Date / Time tramadol Allergy Intermediate redness Verified 12/31/22 07:43 and burning Review of Systems Review of Systems: CONSTITUTIONAL: Denies fever, chills, or sweats. EYES: Denies visual changes, redness, or discharge. ENT: Reports painful plaque to the oropharynx. Denies rhinorrhea, congestion, or otalgia. CARDIOVASCULAR: Denies chest pain, palpitations, or edema. RESPIRATORY: Reports cough, shortness of breath, and pleuritic chest pain. GASTROINTESTINAL: Denies abdominal pain, nausea, vomiting, or diarrhea. GENITOURINARY: Denies dysuria or hematuria. SKIN: Denies rash or itching. MUSCULOSKELETAL: Denies back pain, joint pain, or myalgia. NEUROLOGIC: Denies headache, numbness, dizziness, or weakness. PSYCHIATRIC: Denies anxiety or depression. [facility] Past Medical History Medical History Osteoarthritis Ulcer H/O migraine COPD (chronic obstructive pulmonary disease) Arthritis Anxiety Asthma Allergies Surgical History Surgical History H/O tubal ligation Family History Family History Father Cancer Mother Hypertension Diabetes mellitus Depression Anxiety Alcohol abuse Dementia Other Asthma Anxiety Depression Mother Family history of arthritis Family history of diabetes mellitus in first degree relative Family history of dementia Social History Social History Smoking packs per day: 0.5 Smoking cigarettes per day: 10.0 Smoking status: Current every day smoker Tobacco type: cigarettes Alcohol intake: former Substance use: never Living arrangements: with family Gender identity (if verbalized by the patient): Female Exam Narrative: GENERAL: Well-appearing, well-nourished, and in no acute distress. HEAD: Normocephalic, atraumatic. EYES: PERRLA and EOMI. ENT: Nares clear, no rhinorrhea or epistaxis. Mucous membranes moist. There is a white plaque noted to her tongue. Bilateral TMs pearly salguero nonbulging NECK: Supple. No adenopathy or masses. No carotid bruits or JVD CHEST: Clear to auscultation. No respiratory distress. No wheezes rales or rhonchi HEART: Regular rate and rhythm. No murmur heard. Normal peripheral pulses. ABDOMEN: Soft, nontender, nondistended, normal active bowel sounds. EXTREMITIES: Normal range of motion. No edema. SKIN: Warm, dry, no rash. NEURO: No focal deficits. Alert and oriented x3. PSYCH: Normal mood and affect. Course Course Emergency Course: This is a 54-year-old female who presented for evaluation of thrush. She will be discharged with nystatin. She also mentioned that her auto mechanic apprentice recommended she have a chest x-ray. We were able to get that performed for her today but she elected to leave prior to the time that the results were received. X-ray resulted as negative. I attempted to reach patient unsuccessfully. I did recommend she follow-up with her auto mechanic apprentice prior to the time of her discharge and go to the emergency department for worsening symptoms. Patient in agreement with plan of care Level of Care: Express Care Visit Vital Signs Vital signs: Vital Signs Temperature 36.4 C L 04/29/25 15:45 Pulse Rate 91 04/29/25 15:45 Respiratory Rate 16 04/29/25 15:45 Blood Pressure 118/82 04/29/25 15:45 Pulse Oximetry 99 04/29/25 15:45 Oxygen Delivery Room Air 04/29/25 15:45 Temperature 36.4 C L 04/29/25 15:45 Pulse Rate 91 04/29/25 15:45 Respiratory Rate 16 04/29/25 15:45 Blood Pressure 118/82 04/29/25 15:45 Pulse Oximetry 99 04/29/25 15:45 Oxygen Delivery Room Air 04/29/25 15:45 Medical Decision Making Vital Signs Vital Signs: Vital Signs Temperature 36.4 C L 04/29/25 15:45 Pulse Rate 91 04/29/25 15:45 Respiratory Rate 16 04/29/25 15:45 Blood Pressure 118/82 04/29/25 15:45 Pulse Oximetry 99 04/29/25 15:45 Oxygen Delivery Room Air 04/29/25 15:45 Temperature 36.4 C L 04/29/25 15:45 Pulse Rate 91 04/29/25 15:45 Respiratory Rate 16 04/29/25 15:45 Blood Pressure 118/82 04/29/25 15:45 Pulse Oximetry 99 04/29/25 15:45 Oxygen Delivery Room Air 04/29/25 15:45 Imaging Data Radiologist's impression: EXAMINATION: XR chest 2V Exam Date/Time: 04/29/2025 16:06 CDT HISTORY: cough, COPD, PLEURITIC CP Comparison: 01/16/2018. RESULT: Lines, tubes, and devices: None. Lungs and pleura: Clear. Cardiomediastinal silhouette: Stable. Small hiatal hernia. Other: No acute osseous or upper abdominal finding. IMPRESSION: No acute cardiopulmonary process. Discharge Plan Discharge Clinical Impression: Thrush Patient Disposition: Home Condition: Stable Instructions: Antibiotic Form, Oral Candidiasis (ED) Patient Language: Qatari Prescriptions: New nystatin 100,000 unit/mL suspension 5 ml PO QID 14 Days Qty: 280 0RF Rx Instructions: swish and spit No Action atorvastatin 40 mg tablet prednisone 50 mg tablet 50 mg PO DAILY Qty: 5 0RF azithromycin 250 mg tablet See Rx Instructions .ROUTE .COMPLEX Qty: 6 0RF Rx Instructions: For 250 mg dose pack: take 500 mg today (day 1), then 250 mg for 4 days (days 2-5) ipratropium-albuterol 0.5 mg-3 mg(2.5 mg base)/3 mL solution for nebulization INHALATION methylprednisolone 4 mg tablets,dose pack budesonide-formoterol [Symbicort] 160-4.5 mcg/actuation HFA aerosol inhaler INHALATION Dulera 200-5 mcg/actuation HFA aerosol inhaler INHALATION Spiriva Respimat 2.5 mcg/actuation mist INHALATION albuterol sulfate 90 mcg/actuation HFA aerosol inhaler 2 puff INHALATION QID PRN (Reason: shortness of breath or wheezing) Qty: 8.5 0RF terbinafine HCl 250 mg tablet 250 mg PO DAILY Qty: 84 0RF albuterol sulfate 90 mcg/actuation aerosol powdr breath activated 1 inh inhalation BID PRN (Reason: shortness of breath or wheezing) Qty: 1 3RF albuterol sulfate [Proventil HFA] 90 mcg/actuation HFA aerosol inhaler 1 inh inhalation Q4H PRN (Reason: shortness of breath or wheezing) Qty: 8.5 3RF citalopram 20 mg tablet 20 mg PO DAILY Qty: 90 0RF Follow-up/Referrals: Isabelle,SHONDA Huerta [Primary Care Provider] - Time of Disposition: 16:23
== END 2025-04-29 16:27 | disposition home or self-care (01) ==
PROVIDERS: Emergency Provider Nurse Practitioner; PCP Physician Assistant
DX: B37.0 Candidal stomatitis (principal); F17.210 Nicotine dependence, cigarettes, uncomplicated; M19.90 Unspecified osteoarthritis, unspecified site; J44.9 Chronic obstructive pulmonary disease, unspecified; F41.9 Anxiety disorder, unspecified
CPT/HCPCS: 71046; 99213; G0463

== ENCOUNTER 2025-06-14 15:01 | Emergency (ER) | payer BC, SELFPAY ==
--- NOTE | ~2025-06-14 | XR_ITS ---
EXAMINATION: XR chest 2V, 06/14/2025 16:15 CDT HISTORY: cough, sob x4 days. hx Asthma COPD COMPARISON: No comparisons available. Technique: 2 views obtained. Findings: The lungs are clear, no effusion. No pneumothorax. Heart is normal size. Mediastinal and hilar contours are within normal limits. Bony thorax no acute abnormality. Impression: No acute cardiopulmonary abnormality. Reviewed, dictated and finalized at location A. Impression: No acute cardiopulmonary abnormality.
[2025-06-14 15:04] VITALS: BP 137/92; PULSE 95; RESP 16; TEMP 36.6; O2SAT 97
--- OUTSIDE RECORDS SUMMARY | 2025-06-14 15:45 | XMS_ITS | Clinical Summary ---
Author Organization [facility] Address [address] [place] [address] Phone Care Team Providers Care Lpn Cma Name Role Phone Deanna Walton PAC Primary Care Pro vider Pradip Almonte PAC Unavailable [phone] Leyla Cabrera APRN, CAREER ORIENTATION TEACHER Unavailable Allergies Active Allergy Reactions Criticality Noted Date [...] for Cough or Wheezing. 18 g 3 12/31/19 25 Active budesonide-formote rol fumarate (Symbicort) 160-4.5 MCG/ACT Aerosol take 2 Puffs by inhalation 2 times daily. 10.2 g 1 04/07/20 25 Active tiotropium (SPIRIVA RESPIMAT) 2.5 MCG/ACT Aerosol Solution take 2 Puffs by inhalation daily. 4 g 1 04/07/20 25 Active atorvastatin (LIPITOR) 40 MG TabletIndications: Hyperlipidemia, unspecified hyperlipidemia type TAKE 1 TABLET BY MOUTH DAILY 90 Tablet 1 04/24/20 25 Active fluconazole (DIFLUCAN) 100 MG Tablet Take 200mg day 1 then take 100mg days 2-14. 15 Tablet 05/02/20 25 Active Active Problems Problem Noted Date Diagnosed Date [...] Encounters Date Type Department Care Team Description 05/02/2025 Telephone [facility] Pulmonology & Sleep Medicine [facility] [address] [place] [phone] Leyla Cabrera APRN, CRISTOBAL 04/25/2025 Telephone [facility] Pulmonology & Sleep Medicine [facility] [address] [place] [phone] Leyla Cabrera RN 04/22/2025 [facility] [address] [place] [address] Deanna Walton, JESSY Medication Refill 04/13[facility]20[facility] [address] [place] [phone] Leyla Cabrera APRN, CRISTOBAL 04/06/2025 [facility] [address] [place] [phone] Leyla Cabrera APRN, CAREER ORIENTATION TEACHER Prior Authorization (Trelegy) from Last 3 Months Immunizations Immunization Administration [...] oz pur e alcohol) sober since 2019 [facility] [employer] Answer Date Recorded In the past 12 months has [employer], [employer], oil, or water [employer] threatened to shut off services in your [...] How often do you attend chur or nondenominational services? Never 06/13/2024 Do you belong to any clubs o r organizations such as orthodoxy groups, unions, fraternal or athletic groups, or [...] 2 05/29 [facility] - Occupational Stress Questionnaire Answer Date Recorded [...] any time in the past 12 m [facility], were you homeless or living in [...] Description 06/27/2025 10:30 AM CDT [facility] [address] [place] [address] Leyla Cabrera APRN, CAREER ORIENTATION TEACHER [address] [address] 06/28/2025 11:30 AM CDT [facility] [address] [place] [address] Leyla Cabrera APRN, CAREER ORIENTATION TEACHER [address] [address] Discharge Disposition: Discharged to home or Selfcare Health Maintenance Due Date Last Done Comments [...] 04/27/2018 Zoster Immunization (1 of 2) 2021 Influenza Immunization (#1) 05/29/202506/29, 08/01/2013 SARS-COV-2 Immunization ( - season) 2025 Respiratory Syncytial Virus (RSV) Immunization (Adult) (1 [...] patient's age to complete this topic Insurance Care Teams Lpn Cma Relationship Specialty Start Date End Date Deanna Walton PAC PCP - General Physician Feeder Associate 06/13/24 Pradip Almonte PAC Physician Feeder Associate Physician Feeder Associate 06/29/24 Leyla Cabrera APRN, CAREER ORIENTATION TEACHER [address] [address] Nurse Practitioner Advanced Practice Nurse 07/29/24
--- OUTSIDE RECORDS SUMMARY | 2025-06-14 15:45 | XMS_ITS | Encounter Summary ---
Author Organization [facility] Address [address] [place] [address] Phone Care Team Providers Care Physician Primary Care Sports Medicine Name Role Phone IsabelleReema grantceci Castanonelle PAC Primary Care Pro vider Pradip Almonte PAC Unavailable [phone] Leyla Cabrera APRN, METAL MINER BLASTING Unavailable [phone] Encounter Details Date Type Department Care Team (Latest Contact Info) Description 07/13/2024 Transcribe Orders [facility] Preop/Pacu II [address] [place] [address] Stefan Mead, DO [address] [facility] [place]Note [address]] [address] [place], [place] [id number] Right carpal tunnel syndrome (Primary Dx); Pre-op testing Social History Tobacco Use Types Packs/Day Years Used Date Smoking Tobacco: Every Day Cigarettes Smokeless Tobacco: Never Comments:Down to 1/2 pack tr melodie to quit Alcohol Use Standard Drinks/Week Comments Not Currently 0 (1 standard drink = 0.6 oz pur e alcohol) sober since 2019 [facility] Utilities Answer Date Recorded In the [...] often do you attend chur ch or episcopalian services? Never 06/13/2024 Do you belong to any clubs o r organizations such as islam groups, unions, fraternal or athletic groups, or [...] Total Score - Questions 1-9 2 05/29 [facility] - Occupational Stress [...] in the past 12 m [facility], were you homeless or living in a jail (including now)? No 06/13/2024 Sexually Active Control [...] Medical Group - Pulmonology & Sleep Medicine [facility] [address] [place] [address] Leyla Cabrera APRN, METAL MINER BLASTING [address] [address] 06/28/2025 11:30 AM CDT Appointment [facility] Respiratory Therapy [address] [place] [address] Leyla Cabrera APRN, METAL MINER BLASTING [address] [address] Discharge Disposition: Discharged to home or Selfcare documented as of this encounter Visit Diagnoses Diagnosis Right carpal tunnel syndrome- Primary Carpal tunnel syndrome Pre-op testing Preoperative examination, unspecified documented in this encounter Additional Health Concerns Assessment Noted Time PHQ-9 Depression Total Score: 2 06/13/20 24 1:45 PM CDT documented as of this encounter Care Teams Physician Primary Care Sports Medicine Relationship Specialty Start Date End Date Deanna Wlaton PAC PCP - General Physician Renal Medicine Physician 06/13/24 Pradip Almonte PAC Physician Renal Medicine Physician Physician Renal Medicine Physician 06/29/24 Leyla Cabrera, HOTEL FRONT DESK CLERK, METAL MINER BLASTING #[address] [address] Nurse Practitioner Advanced Practice Nurse 07/29/24 documented as of this encounter
--- NOTE | 2025-06-14 16:15 | ED.URI ---
HPI - URI/Sore Throat General Chief Complaint: Upper Respiratory Infection Stated Complaint: cold/flu Time Seen by Provider: 06/14/25 16:10 Source: patient and RN notes reviewed Mode of arrival: ambulatory Limitations: no limitations History of Present Illness HPI Narrative: Patient presents today with a 4 day history of cough, congestion, rhinorrhea, headache, shortness of breath, wheezing, chills. She has been exposed to COVID last week by a co-worker. History of asthma and COPD for which she uses albuterol and Symbicort. Reports her nebulizer treatments helped slightly. She has also been using Robitussin at night with some improvement. Related Data Home Medications ?Medication ?Instructions ?Recorded ?Confirmed ?Last Taken ?Type atorvastatin 40 mg tablet mg 11/22/24 Unknown History budesonide-formoterol HFA 160 inhalation 04/29/25 Unknown History mcg-4.5 mcg/actuation aerosol inhaler (Symbicort) ipratropium 0.5 mg-albuterol 3 mg ml inhalation 04/29/25 Unknown History (2.5 mg base)/3 mL nebulization soln mometasone-formoterol HFA 200 inhalation 04/29/25 Unknown History mcg-5 mcg/actuation aerosol inhaler (Dulera) Allergies Allergy/AdvReac Type Severity Reaction Status Date / Time tramadol Allergy Intermediate redness Verified 06/14/25 15:23 and burning PMFSH Past Medical History Medical History Osteoarthritis Ulcer H/O migraine COPD (chronic obstructive pulmonary disease) Arthritis Anxiety Asthma Allergies Surgical History Surgical History H/O tubal ligation Family History Family History Father Cancer Mother Hypertension Diabetes mellitus Depression Anxiety Alcohol abuse Dementia Other Asthma Anxiety Depression Mother Family history of arthritis Family history of diabetes mellitus in first degree relative Family history of dementia Social History Social History Smoking packs per day: 0.5 Smoking cigarettes per day: 10.0 Smoking status: Current every day smoker Tobacco type: cigarettes Alcohol intake: former Substance use: never Living arrangements: with family Gender identity (if verbalized by the patient): Female Comments At time of signature, I have reviewed and agree with nursing past medical, surgical, social and family history unless otherwise noted. Please see nursing chart for further information. There is no relevant family history pertinent to the presenting complaint Exam Narrative: GENERAL: Mildly ill-appearing, well-nourished, and in no acute distress. HEAD: Normocephalic, atraumatic. EYES: EOMI. No redness or drainage. Conjunctivae normal. ENT: Mucous membranes pink and moist. Nares congested with rhinorrhea. TMs normal bilaterally. Throat normal. Uvula midline. NECK: Normal AROM. Supple. No lymphadenopathy. CHEST: No respiratory distress. Expiratory wheezing in the left upper lobe, otherwise clear. Harsh cough noted. HEART: Regular rate and rhythm. No murmur appreciated. EXTREMITIES: Normal range of motion. No edema. SKIN: Warm, dry, no rash. Capillary refill normal. Normal skin turgor. NEURO: No focal deficits. Alert and oriented x3. Gait steady. PSYCH: Normal affect. No signs of depression or anxiety. Course Course Level of Care: Express Care Visit Vital Signs Vital signs: Vital Signs Temperature 98 F 06/14/25 15:04 Pulse Rate 95 06/14/25 15:04 Respiratory Rate 16 06/14/25 15:04 Blood Pressure 137/92 H 06/14/25 15:04 Pulse Oximetry 97 06/14/25 15:04 Oxygen Delivery Room Air 06/14/25 15:04 Temperature 98 F 06/14/25 15:04 Pulse Rate 95 06/14/25 15:04 Respiratory Rate 16 06/14/25 15:04 Blood Pressure 137/92 H 06/14/25 15:04 Pulse Oximetry 97 06/14/25 15:04 Oxygen Delivery Room Air 06/14/25 15:04 Reviewed MDM - URI/Sore Throat MDM Narrative Medical decision making narrative: 55-year-old female patient presents today complaining of a 4 day history of cough, congestion, rhinorrhea, sore throat, headache, shortness of breath and wheezing. She had some exposure to COVID-19 from a co-worker last week. History of asthma and COPD. She has tried some Robitussin and Tylenol without much improvement. Upon exam, patient is mildly ill appearing with nasal congestion and rhinorrhea. She has a harsh cough with left upper lobe wheezing. Her chest x-rays negative. Her COVID-19 test is negative. Given exposure to COVID-19 at work, it is likely her test is falsely negative. Will treat with prednisone for an upper respiratory viral infection in COPD exacerbation with prednisone and Cheratussin. She has an albuterol inhaler and nebulizer treatments at home as well. Vital signs stable. Anticipatory guidance and ED precautions given. Differential Diagnosis Differential diagnosis: Likely upper respiratory infection, viral infection and other (COPD exacerbation, asthma exacerbation, pneumonia, COVID) Lab Data Attestation: I reviewed the patient's lab results. Lab results narrative: COVID negative Imaging Data Radiologist's impression: ITS Impressions Chest X-Ray 06/14/25 17:05 Impression: No acute cardiopulmonary abnormality. Critical Care Time Critical Care Time Critical Care Time: No Discharge Plan Discharge Clinical Impression: COPD exacerbation Upper respiratory infection Qualifiers: URI type: unspecified URI Qualified Code(s): J06.9 - Acute upper respiratory infection, unspecified Patient Disposition: Home Condition: Stable Instructions: Upper Respiratory Infection (DC) Additional Instructions: Your COVID-19 test is negative, however, with your exposure and symptoms you may still have the virus. Continue gxbs-pww-opunerh medication as needed. Take the prednisone and Cheratussin as prescribed. Do not drive within 6 hours of taking the Cheratussin as it can make you drowsy. If symptoms worsen, please go to the ER. Your blood pressure was elevated above 120/80 today at Urgent Care. This puts you above the threshold for follow up. Please schedule a followup visit with your personal physician as soon as possible, for further evaluation and treatment. Even blood pressure exceeding 120/80 may indicate pre-hypertension. Patient Language: South Korean Prescriptions: New codeine-guaifenesin 10-100 mg/5 mL liquid 5 ml PO Q6H PRN (Reason: cough) Qty: 120 0RF prednisone 50 mg tablet 50 mg PO DAILY 5 Days Qty: 5 0RF No Action atorvastatin 40 mg tablet ipratropium-albuterol 0.5 mg-3 mg(2.5 mg base)/3 mL solution for nebulization INHALATION budesonide-formoterol [Symbicort] 160-4.5 mcg/actuation HFA aerosol inhaler INHALATION Dulera 200-5 mcg/actuation HFA aerosol inhaler INHALATION albuterol sulfate 90 mcg/actuation HFA aerosol inhaler 2 puff INHALATION QID PRN (Reason: shortness of breath or wheezing) Qty: 8.5 0RF albuterol sulfate 90 mcg/actuation aerosol powdr breath activated 1 inh inhalation BID PRN (Reason: shortness of breath or wheezing) Qty: 1 3RF albuterol sulfate [Proventil HFA] 90 mcg/actuation HFA aerosol inhaler 1 inh inhalation Q4H PRN (Reason: shortness of breath or wheezing) Qty: 8.5 3RF citalopram 20 mg tablet 20 mg PO DAILY Qty: 90 0RF Follow-up/Referrals: Isabelle,SHONDA Huerta [Primary Care Provider, Unknown] Stand Alone Forms: Work/School Release IP Time of Disposition: 17:16
== END 2025-06-14 17:18 | disposition home or self-care (01) ==
PROVIDERS: Emergency Provider Nurse Practitioner; PCP Physician Assistant
DX: J44.1 Chronic obstructive pulmonary disease with (acute) exacerbation (principal); J06.9 Acute upper respiratory infection, unspecified; F17.210 Nicotine dependence, cigarettes, uncomplicated; M19.90 Unspecified osteoarthritis, unspecified site; F41.9 Anxiety disorder, unspecified
CPT/HCPCS: 71046; 99213; G0463